=== PATIENT | male | born 1980 | race Two or more races ===

== ENCOUNTER 2017-11-21 22:00 | Inpatient (IN) | payer MEDICAID ==
[~2017-11-21] VITALS: Ht 166.6 cm; Wt 81.0 kg
[2017-11-21 23:09] LABS: Basophils # (auto) 0.1 uL; Basophils % (auto) 0.5 % (0.0-2.0); Eosinophils # (auto) 0.2 uL; Eosinophils % (auto) 1.7 % (0.0-7.0); Hemoglobin 15.3 g/dL (13.5-17.5); Lymphocytes # (auto) 1.5 uL; Lymphocytes % (auto) 11.7 % (10.0-50.0); Mean Corpuscular Volume 88.4 fL (80.0-100.0); Monocytes # (auto) 0.7 uL; Monocytes % (auto) 5.9 % (0.0-12.0); Neutrophils # (auto) 10.2 uL; Neutrophils % (auto) 80.2 % (37.0-80.0); Nucleated Red Blood Cells % 0.1 %; Platelet Count (auto) 368 10^3/uL (140-450); Red Cell Distribution Width 14.2 % (11.8-14.3); White Blood Cell 12.7 10^3/uL (4.4-10.8)
[2017-11-21 23:19] LABS: BUN/Creatinine Ratio 14.9; Bilirubin, Total 0.2 mg/dL (0.2-1.0); Calcium 8.6 mg/dL (8.5-10.1); Potassium 3.6 mmol/L (3.5-5.1); Total Protein 7.4 g/dL (6.4-8.2)
[2017-11-22] MEDS ORDERED: SODIUM CHLORIDE 0.9% 1,000 ML IV ONE (02:00)
[2017-11-22] MEDS ORDERED: ONDANSETRON HCL 4 MG/2 ML VIAL IV ONE (02:00)
[2017-11-22] MEDS ORDERED: MORPHINE SULFATE 4 MG/ML SYR/VIAL IV ONE (02:00)
[2017-11-22] MEDS ORDERED: cefTRIAXone 1GM/10ml IVPUSH 10 ML IV ONE (06:15)
[2017-11-22] MEDS ORDERED: metroNIDAZOLE 500MG/100ML 100 ML IV ONE (06:15)
[2017-11-22] MEDS ORDERED: ONDANSETRON HCL 4 MG/2 ML VIAL IV PRN (06:30)
[2017-11-22] MEDS ORDERED: HYDROcodone-ACET 5/325MG TAB PO PRN (06:30)
[2017-11-22] MEDS ORDERED: ACETAMINOPHEN 500 MG TAB PO PRN (06:30)
[2017-11-22 07:37] LABS: Basophils # (auto) 0.1 uL; Eosinophils # (auto) 0.2 uL; Eosinophils % (auto) 1.4 % (0.0-7.0); Hematocrit 44.3 % (41.0-53.0); Hemoglobin 14.9 g/dL (13.5-17.5); Lymphocytes # (auto) 1.6 uL; Lymphocytes % (auto) 14.6 % (10.0-50.0); Mean Corpuscular Hemoglobin 29.7 pg (28.0-32.0); Mean Corpuscular Hgb Conc. 33.7 g/dL (32.0-36.0); Mean Corpuscular Volume 88.3 fL (80.0-100.0); Monocytes # (auto) 0.9 uL; Neutrophils # (auto) 8.1 uL; Nucleated Red Blood Cells % 0.1 %; Platelet Count (auto) 355 10^3/uL (140-450); Red Blood Cells 5.02 10^6/uL (4.5-5.90); Red Cell Distribution Width 14.1 % (11.8-14.3); White Blood Cell 10.9 10^3/uL (4.4-10.8)
[2017-11-22 07:56] LABS: Calcium 8.3 mg/dL (8.5-10.1); Potassium 3.8 mmol/L (3.5-5.1)
[2017-11-22 07:59] LABS: BUN/Creatinine Ratio 15.4
[2017-11-22 08:00] VITALS: BP 139/86
[2017-11-22] MEDS: MORPHINE SULFATE 4 MG/ML SYR/VIAL IV PRN ×4 (08:09→21:31)
[2017-11-22 09:00] VITALS: BP 139/86
[2017-11-22 12:29] VITALS: BP 131/80
[2017-11-22 12:50] LABS: Urine Bacteria NONE SEEN /hpf (None Seen); Urine Blood Negative /uL (Negative); Urine Specific Gravity 1.022 (1.001-1.035); Urine WBC <1 /hpf (0 - 3)
[2017-11-22 13:04] LABS: Alcohol, Urine < 3.0 mg/dL (0-5); Amphetamine Screen, Urine NEGATIVE (NEGATIVE); Barbiturate Scree,Urine NEGATIVE (NEGATIVE); Benzodiazephine Screen, Urine NEGATIVE (NEGATIVE); Cannabinoid Screen, Urine NEGATIVE (NEGATIVE); Cocaine Screen, Urine NEGATIVE (NEGATIVE); Opiate Scree,Urine POSITIVE (NEGATIVE); Phencyclidine Screen, Urine NEGATIVE (NEGATIVE)
[2017-11-22] MEDS ORDERED: GASTROGRAFIN 120 ML SOL ONE (13:15)
[2017-11-22] MEDS: D5W/SOD CHL 0.9%/KCL 40MEQ 1,000 ML IV SCH (13:47)
[2017-11-22] MEDS: metroNIDAZOLE 500MG/100ML 100 ML IV SCH ×2 (13:48→21:31)
[2017-11-22 14:31] LABS: INR 0.93 (0.9-1.15); Partial Thromboplastin Time 26.1 sec (22.64-33.71); Prothrombin Time 10.1 sec (9.37-12.3)
[2017-11-22 17:00] VITALS: BP 139/78
[2017-11-22 21:50] VITALS: BP 142/84
[2017-11-23] VITALS (7 sets, daily range): BP systolic 119–140; BP diastolic 71–87
[2017-11-23] MEDS: D5W/SOD CHL 0.9%/KCL 40MEQ 1,000 ML IV SCH (00:56)
[2017-11-23] MEDS: MORPHINE SULFATE 4 MG/ML SYR/VIAL IV PRN ×4 (05:16→20:43)
[2017-11-23] MEDS: metroNIDAZOLE 500MG/100ML 100 ML IV SCH (05:17)
[2017-11-23] MEDS ORDERED: cefTRIAXone 1GM/10ml IVPUSH 10 ML IV SCH (06:00)
[2017-11-23 06:51] LABS: Basophils # (auto) 0 uL; Basophils % (auto) 0.5 % (0.0-2.0); Eosinophils # (auto) 0.1 uL; Eosinophils % (auto) 1.1 % (0.0-7.0); Hematocrit 43.8 % (41.0-53.0); Hemoglobin 15.1 g/dL (13.5-17.5); Lymphocytes # (auto) 1.3 uL; Mean Corpuscular Hemoglobin 30.6 pg (28.0-32.0); Mean Corpuscular Hgb Conc. 34.5 g/dL (32.0-36.0); Mean Corpuscular Volume 88.7 fL (80.0-100.0); Monocytes # (auto) 0.6 uL; Neutrophils # (auto) 6.2 uL; Neutrophils % (auto) 75.4 % (37.0-80.0); Nucleated Red Blood Cells % 0.1 %; Platelet Count (auto) 338 10^3/uL (140-450); Red Blood Cells 4.93 10^6/uL (4.5-5.90); Red Cell Distribution Width 14.3 % (11.8-14.3); White Blood Cell 8.3 10^3/uL (4.4-10.8)
[2017-11-23 07:19] LABS: Albumin 3.4 g/dL (3.4-5.0); BUN/Creatinine Ratio 12.4; Bilirubin, Total 0.4 mg/dL (0.2-1.0); Calcium 8.2 mg/dL (8.5-10.1); Potassium 3.8 mmol/L (3.5-5.1)
[2017-11-23] MEDS ORDERED: PANTOPRAZOLE 40 MG TAB PO ONE (12:30)
[2017-11-24 05:00] VITALS: BP 112/55
[2017-11-24] MEDS: MORPHINE SULFATE 4 MG/ML SYR/VIAL IV PRN (05:23)
[2017-11-24 09:59] VITALS: BP 147/85
[2017-11-24] MEDS ORDERED: PANTOPRAZOLE 40 MG TAB PO SCH (10:00)
[2017-11-24 12:34] VITALS: BP 140/82
[2017-11-24] MEDS ORDERED: PANT40T PO (13:03)
[2017-11-24] MEDS ORDERED: IBUP400T21 PO (13:03)
[2017-11-24 14:40] VITALS: BP 140/82
== END 2017-11-24 14:55 | disposition home or self-care (01) | DRG 254 ==
LOC: ER 22:00 → OVERFLOW 22:01 → EAST 11-22 08:14
PROVIDERS: ADMIT Nurse Practitioner Family; ATTEND Internal Medicine
DX: K42.0 Umbilical hernia with obstruction, without gangrene (principal); R65.10 Systemic inflammatory response syndrome (SIRS) of non-infectious origin without acute organ dysfunction; K40.90 Unilateral inguinal hernia, without obstruction or gangrene, not specified as recurrent; K59.00 Constipation, unspecified; J98.11 Atelectasis; F17.210 Nicotine dependence, cigarettes, uncomplicated
CPT/HCPCS: 36415; 71045; 74176; 74250; 80048; 80053; 80307; 81001; 85025; 85610; 85730; 87040; 96361; 96365; 96375; J2405; J3490

== ENCOUNTER 2018-04-14 14:37 | Emergency (ER) | payer MEDICAID ==
[~2018-04-14] VITALS: Ht 167.6 cm; Wt 77.1 kg
[~2018-04-14 14:37] MED LIST: IBUP400T21 PO; PANT40T PO
[2018-04-14 15:03] VITALS: BP 135/80
[2018-04-14] MEDS ORDERED: SODIUM CHLORIDE 0.9% 1,000 ML IV ONE ×2 (15:23)
[2018-04-14 15:32] LABS: Basophils # (auto) 0 uL; Basophils % (auto) 0.3 % (0.0-2.0); Eosinophils # (auto) 0 uL; Eosinophils % (auto) 0.3 % (0.0-7.0); Hematocrit 47.9 % (41.0-53.0); Hemoglobin 16.5 g/dL (13.5-17.5); Lymphocytes # (auto) 1.1 uL; Lymphocytes % (auto) 7.7 % (10.0-50.0); Mean Corpuscular Hemoglobin 30.8 pg (28.0-32.0); Mean Corpuscular Hgb Conc. 34.4 g/dL (32.0-36.0); Mean Corpuscular Volume 89.6 fL (80.0-100.0); Monocytes # (auto) 0.7 uL; Monocytes % (auto) 5.1 % (0.0-12.0); Neutrophils % (auto) 86.6 % (37.0-80.0); Nucleated Red Blood Cells % 0.1 %; Platelet Count (auto) 355 10^3/uL (140-450); Red Blood Cells 5.34 10^6/uL (4.5-5.90); Red Cell Distribution Width 14.2 % (11.8-14.3); White Blood Cell 13.8 10^3/uL (4.4-10.8)
[2018-04-14] MEDS ORDERED: KETOROLAC TROMETH 30 MG/ML 1ML VIAL IV ONE (15:45)
[2018-04-14] MEDS ORDERED: ONDANSETRON HCL 4 MG/2 ML VIAL IV ONE (15:45)
[2018-04-14 15:53] LABS: Albumin 4.2 g/dL (3.4-5.0); BUN/Creatinine Ratio 12.6; Bilirubin, Total 0.4 mg/dL (0.2-1.0); Calcium 8.6 mg/dL (8.5-10.1); Potassium 3.9 mmol/L (3.5-5.1); Total Protein 8.1 g/dL (6.4-8.2)
[2018-04-14] MEDS ORDERED: cefTRIAXone 1GM/10ml IVPUSH 10 ML IV ONE (16:00)
[2018-04-14] MEDS ORDERED: MORPHINE SULFATE 4 MG/ML SYR/VIAL IV ONE (16:15)
== END 2018-04-14 16:40 | disposition home or self-care (01) ==
LOC: EDBD 14:37 → ER 14:37 → EDUNIT# 14:37 → ER 16:40
DX: K42.9 Umbilical hernia without obstruction or gangrene (principal); Z79.899 Other long term (current) drug therapy
CPT/HCPCS: 36415; 74176; 80053; 85025; 94761; 96361; 96374; 96375; 99285; J0696; J1885; J2270; J2405; J7030

== ENCOUNTER 2020-04-12 08:05 | Emergency (ER) | payer MEDICAID ==
[~2020-04-12] VITALS: Ht 167.6 cm; Wt 74.8 kg
[2020-04-12 08:45] VITALS: BP 139/87
[2020-04-12] MEDS ORDERED: TETANUS-DIPTH-ACEL PERTUSSIS 0.5ML SYR Tdap IM ONE (08:45)
[2020-04-12] MEDS ORDERED: cefTRIAXone SOD 1,000 MG VL IM ONE (08:45)
[2020-04-12] MEDS ORDERED: LIDOCAINE 1% HCL (LOCAL ANESTH.) INJ 20ML MDV IJ ONE (08:45)
[2020-04-12] MEDS ORDERED: HYDROcodone-ACET 5/325MG TAB PO ONE (09:00)
[2020-04-12] MEDS ORDERED: ONDANSETRON ODT 4 MG TAB PO ONE (10:15)
== END 2020-04-12 10:35 | disposition home or self-care (01) ==
LOC: ER 08:05
DX: S62.620B Displaced fracture of middle phalanx of right index finger, initial encounter for open fracture (principal); W26.8XXA Contact with other sharp object(s), not elsewhere classified, initial encounter; Y93.89 Activity, other specified; Y92.89 Other specified places as the place of occurrence of the external cause; Y99.8 Other external cause status
CPT/HCPCS: 29130; 73140; 96372; 99283; J0696; J2001; Q0162